=== PATIENT | male | born 1940 | race Caucasian/White ===

== ENCOUNTER 2016-12-26 14:08 | Day surgery (SDC) | payer MEDICARE, BC ==
[2016-12-26] VITALS (7 sets, daily range): BP systolic 158–177; BP diastolic 65–84; PULSE 53–74; TEMP 97.2–97.9
[~2016-12-26] VITALS: Ht 185.4 cm; Wt 122.7 kg
[~2016-12-26 14:08] MED LIST: CIPRO 500MG TA500 MG PO; COLACE 100100 MG/CAP PO; COUMADIN 5MG5 MG/TAB PO; HCTZ 25MG TAB25 MG PO; HUMALOG100 U/ML; HYTRIN10 M1 PO; LANTUS100 U/ML; LASIX 40MG TABL40 MG PO; LOFIBRA134 MG PO; LOTENSIN 1010 MG/TAB PO; NORVASC 5MG5 MG/TAB PO; NOVOLOG 100U100 U/M1 SQ; PREVACID 30MG30 M1 PO; PRILOSEC 20MG20 MG PO; PRINIVIL10 MG PO
== END 2016-12-26 21:10 | disposition home or self-care (01) ==
LOC: SDCO 14:08 → SURG 19:01 → JCC 19:51 → SDCO 21:10
DX: N35.9 Urethral stricture, unspecified (principal)
CPT/HCPCS: OP; J0690; J2704; J3010; J7030

== ENCOUNTER 2017-03-29 08:09 | Day surgery (SDC) | payer MEDICARE, BC ==
[~2017-03-29] VITALS: Ht 182.9 cm; Wt 121.5 kg
[2017-03-29 09:31] VITALS: BP 143/88; PULSE 77; TEMP 98.4
[2017-03-29 09:40] LABS: CALCIUM 8.5 mg/dL (8.4-10.2); CREATININE, serum 1.44 mg/dL (0.66-1.25); POTASSIUM 3.5 mmol/L (3.4-5.0)
[2017-03-29 13:15] VITALS: BP 132/55; PULSE 67; TEMP 98.5
[2017-03-29 13:30] VITALS: BP 160/61; PULSE 67
[2017-03-29 14:04] VITALS: BP 124/53; PULSE 65; TEMP 98.6
== END 2017-03-29 13:55 | disposition home or self-care (01) ==
LOC: SDCO 08:09
PROVIDERS: Nurse Anesthetist, Certified Registered
DX: N35.9 Urethral stricture, unspecified (principal); I48.92 Unspecified atrial flutter; I11.0 Hypertensive heart disease with heart failure; I50.9 Heart failure, unspecified; E11.9 Type 2 diabetes mellitus without complications; F41.9 Anxiety disorder, unspecified; M19.90 Unspecified osteoarthritis, unspecified site; E78.00 Pure hypercholesterolemia, unspecified; N40.1 Benign prostatic hyperplasia with lower urinary tract symptoms; R39.12 Poor urinary stream; Z79.4 Long term (current) use of insulin; Z79.01 Long term (current) use of anticoagulants; Z90.79 Acquired absence of other genital organ(s); Z90.49 Acquired absence of other specified parts of digestive tract
CPT/HCPCS: J0690; J1100; J1815; J2405; J2704; J2765; J3010; J7030

== ENCOUNTER 2017-06-13 06:54 | Day surgery (SDC) | payer MEDICARE, BC ==
[2017-06-13] VITALS (10 sets, daily range): BP systolic 131–163; BP diastolic 53–72; PULSE 50–67; TEMP 97.1–97.6
[~2017-06-13] VITALS: Ht 185.4 cm; Wt 121.4 kg
[2017-06-13] MEDS ORDERED: TRICOR145 MG PO (08:01)
[2017-06-13] MEDS ORDERED: LASIX 20MG TABL20 MG PO (08:02)
== END 2017-06-13 15:34 | disposition home or self-care (01) ==
LOC: SDCO 06:54
DX: N35.9 Urethral stricture, unspecified (principal); I48.92 Unspecified atrial flutter; F41.9 Anxiety disorder, unspecified; E11.42 Type 2 diabetes mellitus with diabetic polyneuropathy; M19.90 Unspecified osteoarthritis, unspecified site; I11.0 Hypertensive heart disease with heart failure; I50.9 Heart failure, unspecified; E78.00 Pure hypercholesterolemia, unspecified; Z90.49 Acquired absence of other specified parts of digestive tract; Z79.4 Long term (current) use of insulin; Z79.01 Long term (current) use of anticoagulants; Z85.828 Personal history of other malignant neoplasm of skin; Z82.5 Family history of asthma and other chronic lower respiratory diseases
CPT/HCPCS: J0690; J1100; J1170; J1885; J2405; J2704; J3010; J7030

== ENCOUNTER 2017-08-09 06:36 | Day surgery (SDC) | payer MEDICARE, BC ==
[~2017-08-09] VITALS: Ht 185.4 cm; Wt 122.9 kg
[~2017-08-09 06:36] MED LIST changes: +LASIX 20MG TABL20 MG PO; +TRICOR145 MG PO
[2017-08-09 07:09] VITALS: BP 169/72; PULSE 62; TEMP 97.7
[2017-08-09 09:46] VITALS: TEMP 97.8
[2017-08-09 10:00] VITALS: BP 157/56; PULSE 56
[2017-08-09 10:15] VITALS: BP 141/70; PULSE 57
[2017-08-09 10:30] VITALS: BP 188/72; PULSE 59
== END 2017-08-09 10:42 | disposition home or self-care (01) ==
LOC: SDCO 06:36
DX: N35.9 Urethral stricture, unspecified (principal); N48.89 Other specified disorders of penis; I48.92 Unspecified atrial flutter; F41.9 Anxiety disorder, unspecified; M19.90 Unspecified osteoarthritis, unspecified site; I11.0 Hypertensive heart disease with heart failure; I50.9 Heart failure, unspecified; E11.36 Type 2 diabetes mellitus with diabetic cataract; N40.1 Benign prostatic hyperplasia with lower urinary tract symptoms; R39.12 Poor urinary stream; E78.00 Pure hypercholesterolemia, unspecified; K21.9 Gastro-esophageal reflux disease without esophagitis; Z79.4 Long term (current) use of insulin; Z79.01 Long term (current) use of anticoagulants; Z82.5 Family history of asthma and other chronic lower respiratory diseases; Z90.49 Acquired absence of other specified parts of digestive tract; Z85.828 Personal history of other malignant neoplasm of skin
CPT/HCPCS: C1769; J1100; J1170; J2270; J2405; J2704; J3010; J7030

== ENCOUNTER 2017-10-04 08:04 | Day surgery (SDC) | payer MEDICARE, BC ==
[~2017-10-04] VITALS: Ht 185.4 cm; Wt 122.2 kg
[2017-10-04 08:38] VITALS: BP 168/66; PULSE 68; TEMP 97.1
[2017-10-04 09:16] LABS: BASO % 0.3 % (0.0-2.0); EOS # 0.1 (0.0-0.7); EOS % 1.6 % (0-4.0); GRAN # 4.8 (1.4-6.5); GRAN % 74.4 % (42.2-75.2); HEMATOCRIT 41.9 % (42.0-52.0); HEMOGLOBIN 13.7 g/dl (13.5-18.0); LYMPH % 16.1 % (20.0-51.0); MEAN CELL VOLUME 91 fl (80.0-100.0); MEAN CORPUSCULAR HEMOGLOBIN 30 pg (27.0-31.0); MEAN CORPUSCULAR HGB CONC 33 g/dl (33.0-37.0); MEAN PLATELET VOLUME 11.8 fl (7.4-10.4); MONO # 0.5 (0.1-0.6); MONO % 7.4 % (1.7-9.3); PLATELET COUNT 226 K/mm3 (130-400); RED BLOOD COUNT 4.59 M/mm3 (4.20-5.60); REDCELL DISTRIBUTION WIDTH-CV 14.9 % (11.5-14.5)
[2017-10-04 10:35] VITALS: BP 154/58; PULSE 62; TEMP 97.2
[2017-10-04 10:50] VITALS: BP 150/64; PULSE 57
[2017-10-04 11:05] VITALS: BP 143/93; PULSE 63
[2017-10-04 13:09] VITALS: BP 139/62; PULSE 60; TEMP 98.3
== END 2017-10-04 11:35 | disposition home or self-care (01) ==
LOC: SDCO 08:04
PROVIDERS: Urology
DX: N35.9 Urethral stricture, unspecified (principal); I11.0 Hypertensive heart disease with heart failure; I50.9 Heart failure, unspecified; E11.40 Type 2 diabetes mellitus with diabetic neuropathy, unspecified; K21.9 Gastro-esophageal reflux disease without esophagitis; F41.9 Anxiety disorder, unspecified; I48.92 Unspecified atrial flutter; M19.90 Unspecified osteoarthritis, unspecified site; N40.1 Benign prostatic hyperplasia with lower urinary tract symptoms; R33.8 Other retention of urine; E78.00 Pure hypercholesterolemia, unspecified; E11.39 Type 2 diabetes mellitus with other diabetic ophthalmic complication; H40.9 Unspecified glaucoma; Z90.49 Acquired absence of other specified parts of digestive tract; Z79.4 Long term (current) use of insulin; Z79.01 Long term (current) use of anticoagulants; Z86.718 Personal history of other venous thrombosis and embolism
CPT/HCPCS: J0690; J2405; J2704; J3010; J7030

== ENCOUNTER 2017-11-20 10:58 | Day surgery (SDC) | payer MEDICARE, BC ==
[~2017-11-20] VITALS: Ht 185.4 cm; Wt 122.4 kg
[2017-11-20 11:56] LABS: BASO % 0.6 % (0.0-2.0); EOS # 0.1 (0.0-0.7); GRAN % 71.4 % (42.2-75.2); HEMATOCRIT 43.5 % (42.0-52.0); LYMPH # 1.4 (1.2-3.4); LYMPH % 19.7 % (20.0-51.0); MEAN CELL VOLUME 92 fl (80.0-100.0); MEAN CORPUSCULAR HEMOGLOBIN 30 pg (27.0-31.0); MEAN CORPUSCULAR HGB CONC 32 g/dl (33.0-37.0); MEAN PLATELET VOLUME 11.9 fl (7.4-10.4); MONO # 0.4 (0.1-0.6); PLATELET COUNT 252 K/mm3 (130-400); RED BLOOD COUNT 4.73 M/mm3 (4.20-5.60); REDCELL DISTRIBUTION WIDTH-CV 15.3 % (11.5-14.5)
[2017-11-20 12:08] VITALS: BP 164/72; PULSE 69; TEMP 97.7
[2017-11-20 14:15] VITALS: BP 155/59; PULSE 56; TEMP 97.2
[2017-11-20 14:30] VITALS: BP 171/60; PULSE 56
[2017-11-20 14:40] VITALS: BP 165/67; PULSE 59
== END 2017-11-20 15:10 | disposition home or self-care (01) ==
LOC: SDCO 10:58
PROVIDERS: Urology
DX: N35.9 Urethral stricture, unspecified (principal); I48.92 Unspecified atrial flutter; F41.9 Anxiety disorder, unspecified; E11.39 Type 2 diabetes mellitus with other diabetic ophthalmic complication; H40.9 Unspecified glaucoma; E11.42 Type 2 diabetes mellitus with diabetic polyneuropathy; K21.9 Gastro-esophageal reflux disease without esophagitis; I11.0 Hypertensive heart disease with heart failure; I50.9 Heart failure, unspecified; M19.90 Unspecified osteoarthritis, unspecified site; N40.1 Benign prostatic hyperplasia with lower urinary tract symptoms; R39.198 Other difficulties with micturition; R33.9 Retention of urine, unspecified; E78.00 Pure hypercholesterolemia, unspecified; Z90.49 Acquired absence of other specified parts of digestive tract; Z79.4 Long term (current) use of insulin; Z79.01 Long term (current) use of anticoagulants; Z88.0 Allergy status to penicillin; Z88.1 Allergy status to other antibiotic agents; Z88.6 Allergy status to analgesic agent; Z86.718 Personal history of other venous thrombosis and embolism
CPT/HCPCS: J0690; J2405; J2704; J3010; J3301; J7030

== ENCOUNTER 2018-03-12 13:04 | Day surgery (SDC) | payer MEDICARE, BC ==
[~2018-03-12] VITALS: Ht 185.4 cm; Wt 121.1 kg
[2018-03-12 14:06] VITALS: BP 167/66; PULSE 64; TEMP 97.6
[2018-03-12 16:55] VITALS: BP 136/88; PULSE 64; TEMP 97.4
[2018-03-12 17:10] VITALS: BP 143/59; PULSE 66
[2018-03-12 17:14] VITALS: TEMP 97
[2018-03-12 17:25] VITALS: BP 172/79; PULSE 67
== END 2018-03-12 17:42 | disposition home or self-care (01) ==
LOC: SDCO 13:04
DX: N35.9 Urethral stricture, unspecified (principal); I48.92 Unspecified atrial flutter; F41.9 Anxiety disorder, unspecified; M19.90 Unspecified osteoarthritis, unspecified site; N40.1 Benign prostatic hyperplasia with lower urinary tract symptoms; R39.12 Poor urinary stream; I11.0 Hypertensive heart disease with heart failure; I50.9 Heart failure, unspecified; E78.00 Pure hypercholesterolemia, unspecified; E11.39 Type 2 diabetes mellitus with other diabetic ophthalmic complication; H40.9 Unspecified glaucoma; Z90.49 Acquired absence of other specified parts of digestive tract; Z79.4 Long term (current) use of insulin; Z79.01 Long term (current) use of anticoagulants; Z88.6 Allergy status to analgesic agent; Z88.1 Allergy status to other antibiotic agents; Z88.0 Allergy status to penicillin; Z82.5 Family history of asthma and other chronic lower respiratory diseases; Z84.1 Family history of disorders of kidney and ureter
CPT/HCPCS: J1815; J1956; J2405; J3010; J3301

== ENCOUNTER 2021-05-31 12:09 | Day surgery (SDC) | payer MEDICARE, BC ==
[~2021-05-31] VITALS: Ht 180.3 cm; Wt 114.1 kg
[~2021-05-31 12:09] MED LIST changes: -LANTUS100 U/ML; +LANTUS100 U/ML SQ
[2021-05-31 13:40] VITALS: BP 145/71; PULSE 75; TEMP 97.4
[2021-05-31] MEDS ORDERED: ASPIRIN 81M81 MG/TA2 PO (14:21)
[2021-05-31] MEDS ORDERED: PROTONIX20 MG PO (14:22)
[2021-05-31] MEDS ORDERED: LIPITOR20 MG PO (14:22)
[2021-05-31] MEDS ORDERED: LASIX 40MG TABL40 MG PO (14:23)
[2021-05-31] MEDS ORDERED: NORVASC 5MG5 MG/TAB PO (14:25)
[2021-05-31 15:50] VITALS: BP 169/58; PULSE 55; TEMP 97.2
[2021-05-31 16:05] VITALS: BP 160/58; PULSE 56
[2021-05-31 16:20] VITALS: BP 142/58; PULSE 58
--- NOTE | 2021-05-31 16:21 | NUR ---
Patient returned to [facility] via cart. Sleeping, wakes easily to name. Surgical site has scant sanguineous drainage and bandage loose. Per surgeon, leave open to air. Postop vitals started, BP elevated. BP reported to surgeon, no new orders. Patient reports pain on right side and back for 1 week. Reported to surgeon, patient to call Dr. Lau in the morning to discuss pain.
[2021-05-31 16:35] VITALS: BP 133/110; PULSE 60
--- NOTE | 2021-05-31 16:35 | NUR ---
Patient high fowlers in bed, alert and oriented. Replaced bandaids from IV attempts. Discontinued IV with no complications. Urine observed draining through catheter freely into leg bag, clear, feroz colored. Reviewed discharge instructions, patient verbalized understanding. Gave reminder card to call Dr. Lau in the morning for side pain. Provided extra leg bag band, extra drain cap and urinal. Assisted patient to dress and collect belongings.
--- NOTE | 2021-05-31 17:05 | NUR ---
Transported patient with all belongings and discharge materials via wheel chair to friends personal vehicle to be driven home by friend.
--- NOTE | 2021-05-31 17:22 | NUR ---
Patient high vasquez in bed. Sleeping, wakes easily to name. Request water and sugar free jello.
--- NOTE | 2021-05-31 17:25 | NUR ---
Patient sitting high fowlers in bed. Alert and oriented. Tolerating food and drink well.
== END 2021-05-31 17:05 | disposition home or self-care (01) ==
LOC: SDCO 12:09
DX: N35.911 Unspecified urethral stricture, male, meatal (principal); I13.0 Hypertensive heart and chronic kidney disease with heart failure and stage 1 through stage 4 chronic kidney disease, or unspecified chronic kidney disease; I50.9 Heart failure, unspecified; K21.9 Gastro-esophageal reflux disease without esophagitis; M19.90 Unspecified osteoarthritis, unspecified site; M79.7 Fibromyalgia; E11.40 Type 2 diabetes mellitus with diabetic neuropathy, unspecified; I48.92 Unspecified atrial flutter; I48.91 Unspecified atrial fibrillation; K59.00 Constipation, unspecified; E11.22 Type 2 diabetes mellitus with diabetic chronic kidney disease; E78.00 Pure hypercholesterolemia, unspecified; E78.5 Hyperlipidemia, unspecified; E66.9 Obesity, unspecified; F41.9 Anxiety disorder, unspecified; Z85.828 Personal history of other malignant neoplasm of skin; Z90.49 Acquired absence of other specified parts of digestive tract
CPT/HCPCS: C1769; J0690; J2405; J2550; J2704; J3010; J7030